=== PATIENT | female | born 1980 | race Hispanic/Latino ===

== ENCOUNTER 2017-05-15 17:32 | Inpatient (IN) | payer BC, OTHER ==
[2017-05-15] MEDS ORDERED: EPINEPHrine 1 MG/ML AMP ONE ×5 (17:42→21:39)
[2017-05-15] MEDS ORDERED: diphenhydrAMINE 50 MG/ML VIAL ONE (17:42)
[2017-05-15] MEDS ORDERED: Famotidine/PF 20 mg/2ml Vial ONE (17:46)
[2017-05-15] MEDS ORDERED: methylPREDNISolone Sod Succ/PF 125 MG/2 ML VIAL ONE (17:46)
[2017-05-15] MEDS ORDERED: Water For Inject, Bacteriostat 30 ML ONE (17:46)
[2017-05-15] MEDS ORDERED: Magnesium Sulfate 2 GM/NS 0.9% 50 ML BAG ONE (17:51)
[2017-05-15] MEDS ORDERED: EPINEPHrine 1 MG/10 ML Abboject SYRINGE ONE (19:45)
--- NOTE | 2017-05-15 20:14 | RAD ---
PORTABLE CHEST ONE VIEW: Date: 05-15-17 Time: 7:05 p.m. History: Allergic reaction. Respiratory distress. FINDINGS: Comparison made with exam of 05-08-16. The heart size is normal. No lobar consolidation, pneumothorax, kelli pleural edema or large effusion s are seen. IMPRESSION: No acute process. POS: [facility]
[2017-05-15] MEDS ORDERED: Ondansetron HCl/PF 4 MG/2 ML Vial ONE (20:31)
[2017-05-15] MEDS ORDERED: Ketorolac Tromethamine 30 MG/ML VIAL ONE (21:34)
[2017-05-15] MEDS ORDERED: Lidocaine 1% PF 5 ML VIAL ONE (21:44)
[2017-05-15] MEDS ORDERED: Benzocaine 20% Spray 60 ML CAN ONE (21:44)
[2017-05-15] MEDS ORDERED: Midazolam HCl 5 mg/ml Vial ONE ×3 (22:01→23:57)
[2017-05-15] MEDS ORDERED: Fentanyl 100 MCG/2 ML VIAL ONE ×2 (22:01→23:19)
[2017-05-15 23:09] LABS: #Lymphocytes 0.7 thou/uL (1.20-3.40); #Neutrophils 8.5 thou/uL (1.40-6.50); %Basophils 0.3 % (0.0-1.0); %Lymphocytes 7.7 % (21.0-51.0); %Monocytes 0.4 % (0.0-10.0); %Neutrophils 91.6 % (42.0-75.0); Hemoglobin 10.8 g/dL (12.0-16.0); Mean Corpuscular HGB CONC 31.3 g/dL (32.0-36.0); Mean Corpuscular Hemoglobin 27.6 pg (27.0-31.0); Mean Corpuscular Volume 87.9 fl (81.0-99.0); Mean Platelet Volume 5.2 fL (7.4-10.4); Platelet Count 386 thou/uL (130-400); RBC Distribution Width 14.4 % (11.5-14.5); Red Blood Cell (RBC) Count 3.92 mill/uL (4.20-5.40); White Blood Cell (WBC) Count 9.3 thou/uL (4.8-10.8)
[2017-05-15 23:12] LABS: BHCG - Serum Negative (NEGATIVE); Pregs Control Background? CLEAR/WHITE (CLR/WHITE); Pregs Control Bar Appear? YES (CONTROL BAR)
--- NOTE | 2017-05-15 23:14 | RAD ---
PORTABLE CHEST: Date: 05-15-17 Time: 10:55 p.m. History: Respiratory failure. Comparison: 7:05 p.m., same day. FINDINGS: There has been interval placement of an endotracheal tube with tip at the level of the clavicular hea ds. The nasogastric tube is coiled in the distal esophagus with the tip projected superiorly in the d istal esophagus. Report was called to ER physician, Dr. Rodolfo Stewart, at 10:32 p.m. POS: [facility]
[2017-05-15 23:17] LABS: ALT (SGPT) 14 U/L (8-55); AST (SGOT) 12 U/L (5-34); Albumin 3.8 g/dL (3.5-5.0); Alkaline Phosphatase 46 U/L (40-150); Anion Gap 18 mmol/L (10-20); BUN (Urea Nitrogen) 7 mg/dL (7.0-18.7); Bilirubin, Total 0.2 mg/dL (0.2-1.2); Calc. Creatinine Clearance 0 mL/min (70-130); Carbon Dioxide 14 mmol/L (22-29); Chloride 110 mmol/L (98-107); Estimated GFR-MDRD 66; Globulin 3.5 g/dL (2.4-3.5); Glucose 341 mg/dL (70-105); Protein, Total 7.3 g/dL (6.0-8.3); Sodium 139 mmol/L (136-145)
[2017-05-15] MEDS ORDERED: Sodium Chloride 0.9% 100 ML ONE ×2 (23:19→23:58)
--- NOTE | 2017-05-15 23:20 | RAD ---
PORTABLE CHEST ONE VIEW: Date: 05-15-17 Time: 10:35 p.m. History: Respiratory failure, NG tube adjacent. FINDINGS/IMPRESSION: Comparison made with earlier from same day. Endotracheal tube remains in place. There has been re-positioning of the nasogastric tube with tip in the left upper quadrant in the projection of the stomach. POS: [facility]
[2017-05-16] MEDS ORDERED: Propofol 1,000 MG/100 ML VIAL IV ONE (00:37)
[2017-05-16] MEDS ORDERED: Lorazepam 2 MG/ML VIAL ONE (00:58)
[2017-05-16] MEDS ORDERED: Fentanyl 100 MCG/2 ML VIAL ONE ×3 (01:24→02:00)
[2017-05-16] MEDS ORDERED: Acetaminophen 325 MG TAB PO PRN (02:43)
[2017-05-16] MEDS ORDERED: Ondansetron HCl/PF 4 MG/2 ML Vial IVP PRN (02:43)
[2017-05-16] MEDS ORDERED: EPINEPHrine 1 MG, Admixture Fee 1 EACH in Dextrose 5% in Water 250 ML IVPB SCH (02:45)
[2017-05-16] MEDS ORDERED: fentaNYL Citrate/PF 2,000 MCG in Sodium Chloride 0.9% 60 ML IV SCH (02:47)
[2017-05-16] MEDS ORDERED: Fentanyl BOLUS 250 ML IVPB PRN (02:47)
[2017-05-16] MEDS ORDERED: Lorazepam 2 MG/ML VIAL SLOW IVP PRN (02:47)
[2017-05-16] MEDS ORDERED: Morphine 2 MG/ML SYRINGE SLOW IVP PRN (02:47)
[2017-05-16] MEDS ORDERED: DISCONTINUE PREVIOUS NARCOTIC PAIN MEDICATIONS AND BENZODIAZEPINES FS SCH (02:47)
[2017-05-16] MEDS ORDERED: Propofol 1,000 MG/100 ML VIAL IV PRN (02:47)
[2017-05-16] MEDS ORDERED: Sodium Chloride 0.9% 1,000 ML IV SCH (03:00)
[2017-05-16] MEDS ORDERED: Ventilator Sedation Protocol 1 EACH FS ONE (03:07)
[2017-05-16] MEDS ORDERED: Dextrose 50% Abboject 50 ML SYRINGE SLOW IVP PRN (03:11)
[2017-05-16] MEDS ORDERED: Insulin Regular 300 UNITS/3 ML VIAL SC PRN (03:11)
[2017-05-16] MEDS ORDERED: Dextrose 5% in Water 1,000 ML IV PRN (03:11)
[2017-05-16 03:26] LABS: Actual Bicarbonate (HCO3a) 16.4 mEq/L (22-26); Base Excess (BEa) -7.3 mEq/L (0 (+/-) 2.5); CO2 Tension 27.4 mmHg (35.0-45.0); Calcium, Ionized 1.1 mmol/L (1.12-1.30); Hematocrit-ABG 32.5 % (36.0-47.0); Hemoglobin (Hb) 10.1 g/dL (12.0-16.0)
[2017-05-16 03:28] LABS: O2 Tension (PaO2) 535.7 mmHg (80.0-100.0)
[2017-05-16 03:29] LABS: Puncture Site LRA
[2017-05-16] MEDS ORDERED: Potassium Chloride 40 MEQ in Sodium Chloride 0.9% 250 ML 250 ML IVPB SCH (04:00)
[2017-05-16] MEDS: Sodium Chloride 0.9% 1,000 ML IV SCH ×4 (05:05→20:46)
--- NOTE | 2017-05-16 05:11 | HP ---
DATE OF ADMISSION: 05/15/2017 PRIMARY CARE PHYSICIAN: Dr. Conrad Figueredo. CHIEF COMPLAINT: Difficulty breathing. HISTORY OF PRESENT ILLNESS: The patient presented to [facility]gent [facility] ER after trying a new Jamba juice blended with, I believe, dragon fruit reportedly by secondhand reports. She had hives breakout across her neck and chest with difficulty breathing. She was transferred to the [facility] Emergency Department, evaluated and initiated on anaphylaxis protocol. She was unable to maintain her airway despite aggressive treatment and was intubated to protect her airway. Transition to ICU under propofol drip and has remained stable since intubation. The patient is sedated and intubated at the time of exam unable to get ancillary history, unable to get review of systems. Review of past medical, social, and surgical history include closed head injury 2015 with postconcussive syndrome and Arnold-Chiari malformation in 05/2016, lumbar spondylosis 04/2017, history of migraines, insomnia. HOME MEDICATIONS: Include Zofran q.6 hours p.r.n., MS Contin 15 mg q.8 hours extended release, Lidoderm patch 5% q.12 hours, Ortho-Cyclen 0.25/35 mg/mcg once daily, diazepam 10 mg 1 tab prior to injection therapy with Dr. Fady Mtz, naloxegol oxalate 25 mg 1 tab p.o. q. day, gabapentin 300 mg 3 tabs q.8 hours, duloxetine 30 mg 1 tab p.o. q. day, Fioricet 1 tab p.r.n. headache, methocarbamol 750 mg 1 tab p.o. q.4 hours p.r.n. muscle spasm. PAST SURGICAL HISTORY: Includes , cataract, cholecystectomy, partial gastrectomy, tonsils, and adenoids, surgery for Chiari malformation with a subdural hematoma in 2014, April; laminectomy at C1 in April. SOCIAL HISTORY: Patient drinks alcohol socially. Currently , has 3 children. Nonsmoker. FAMILY HISTORY: Includes mother with epilepsy. PHYSICAL EXAMINATION: VITAL SIGNS: On arrival to the floor, temperature of 97.8, pulse of 64, respiratory rate of 12, oxygen saturation 100% on ventilator support, blood pressure 116/51. GENERAL: The patient is intubated and sedated, nonresponsive. Head is normocephalic, atraumatic. I did not turn the patient to review a surgical scar. ET tube in place and OG tube in place. Pupils are pinpoint, but responsive to light equally. No extension of rash from previous description. In the emergency department appears to be largely resolved at this point. HEART: Regular rate and rhythm. No murmurs auscultated. LUNGS: With coarse breath sounds bilaterally, no rhonchi or rales. ABDOMEN: Soft, nondistended, positive bowel sounds throughout. EXTREMITIES: Lower extremities without cyanosis or edema. NEUROLOGIC: Patient not following commands and sedated as above. However, is moving all 4 extremities on transfer from EMS, requiring both propofol, which she settled down for. LABORATORY DATA: Reviewed. White blood cell count 9.3, hemoglobin of 10.8, platelet count of 386. Sodium of 139, potassium of 3.0, chloride of 110, CO2 of 14, creatinine of 0.96, glucose of 341, AST 12, ALT 14, albumin of 3.8. Serum is reviewed as negative. Initial chest x-ray without acute cardiopulmonary events post ET tube placement. No pneumothorax. OG tube in place in stomach appropriately. ASSESSMENT AND PLAN: Acute respiratory failure secondary to anaphylaxis reaction likely secondary to exotic smoothie patient had yesterday evening. Pulmonary Critical Care was consulted for ventilator management and extubation. We will continue patient on sedation protocols. Continue steroids, likely transition to antihistamines once the patient is extubated again. IV fluids to help flush patient's system at this point time. Patient has p.r.n. for both benzodiazepine and opioids, given patient's outpatient usage of narcotics likely that will remain difficult sedation of patient. We will increase as needed to maintain adequate control patient's airway. Follow up on ABG and adjust as needed, patient's ventilation settings. Hypokalemia-replacing with IV KCL and recheck electrolytes in several hours. Hyperglycemia-likely stress induced,but while on high dose steroids will cover with SSI and accuchecks q4 hours. We will have Dr. Conrad Figueredo in the morning. BARBARA
[2017-05-16] MEDS: methylPREDNISolone Sod Succ/PF 125 MG/2 ML VIAL IVP SCH ×3 (06:16→21:36)
[2017-05-16] MEDS ORDERED: Sterile Water 10 ML ONE (06:17)
[2017-05-16] MEDS ORDERED: diphenhydrAMINE 50 MG/ML VIAL IVP PRN (07:22)
--- NOTE | 2017-05-16 08:10 | CON ---
DATE OF CONSULTATION: 05/16/2017 Thirty minutes critical care time. REASON FOR CONSULTATION: Angioedema versus anaphylaxis. HISTORY OF PRESENT ILLNESS: A 36-year-old female, who presented to the [facility] Emer[facility] Room yesterday afternoon with complaints of itching in the throat and a rash around the neck that occurred after drinking dragon fruit blend of Jamba Juice. The emergency room doctor treated her wit h a couple doses of epinephrine and symptoms kept recurring, subsequently intubated her for airway pr otection. This morning, she is awake, indicated to us that her throat is no longer itching and she h ad a positive air leak when her cuff was deflated. PAST MEDICAL HISTORY: 1. Chronic pain. 2. Postconcussive syndrome. 3. Arnold-Chiari malformation. 4. Lumbar spondylosis. 5. Migraine headaches. 6. Insomnia. PAST SURGICAL HISTORY: 1. . 2. Cataract surgery. 3. Cholecystectomy. 4. Partial gastrectomy. 5. Tonsillectomy and adenoidectomy. 6. Surgery for Chiari for malformation. 7. Subdural hematoma treatment. SOCIAL HISTORY: Drinks socially, nonsmoker. , has 3 children. FAMILY MEDICAL HISTORY: Remarkable for epilepsy. MEDICATIONS: Reviewed including Zofran, MS Contin, Lidoderm patch, Ortho-Cyclen, diazepam, gabapenti n, duloxetine, Fioricet, methocarbamol. REVIEW OF SYSTEMS: Cannot be obtained as the patient is on mechanical ventilation when initially int erviewed. ALLERGIES: No known allergies prior to this. PHYSICAL EXAMINATION: VITAL SIGNS: Temperature 98.4, pulse 63, blood pressure 111/50. GENERAL: She is well-developed, well-nourished, in no acute distress, intubated with endotracheal tu be in place. HEENT EXAM: Pupils react, sclerae anicteric. Oropharynx, she had no tongue swelling. She had posit aldo air leak when the cuff was deflated. NECK: No JVD. LUNGS: Clear to auscultation. CARDIAC: S1, S2 regular, without murmur. ABDOMEN: Soft, nontender. EXTREMITIES: No clubbing, cyanosis, edema. NEUROLOGIC EXAM: Moves all 4 extremities without difficulty. LABORATORY DATA: White blood cell count 9.3, hematocrit 34, platelet count 286. PH 7.4, pCO2 of 27, pO2 of 535 on SIMV rate 12, tidal volume 500, PEEP 5, pressure support 10, FiO2 100%. Sodium 139, p otassium 3, chloride 110, CO2 of 14, BUN 7, creatinine 0.9, glucose 341. Chest x-ray showed no mass, effusion, or infiltrate. ASSESSMENT: 1. Angioedema versus anaphylaxis - now resolved. 2. Acute respiratory failure, requiring mechanical ventilation. PLAN: She was extubated successfully. She will be watched in the ICU for several hours, continue on Solu-Medrol. Add IV Pepcid and use Benadryl as needed.
--- NOTE | 2017-05-16 08:22 | PRG ---
DATE OF SERVICE: 05/23/2017 TIME: 0745 SUBJECTIVE: The patient has just been extubated by Dr. Dickinson. She is having difficulty speaking d ue to throat pain from the endotracheal tube. However, she is awake and alert, somewhat sedated. Oswaldo cantu only recalls eating or drinking something at [employer] and immediately afterwards having difficult y with her throat trying to catch her breath. She does not recall any events since then. I informed her that she was at [facility] in the ICU. She was immediately concerned about the whereab outs of her children. OBJECTIVE: VITAL SIGNS: Temperature, patient is afebrile, blood pressure 111/50, pulse 53, respirations 14, pul se ox 100%. HEART: Regular rate and rhythm. LUNGS: Clear. ABDOMEN: Soft. EXTREMITIES: No edema. LABORATORY: BMP pending this morning, blood sugar 148. ASSESSMENT: 1. Anaphylaxis to possibly due to java juice. 2. Acute respiratory failure. 3. History of closed head injury in 2016 with postconcussive syndrome. 4. Arnold Chiari malformation. 5. Lumbar spondylosis. 6. History of migraines. 7. Insomnia. 8. Chronic pain. PLAN: 1. The patient is status post extubation. We will continue to monitor this morning in the ICU. 2. At some point we will have to resume her pain meds. She is followed by Dr. Mtz for chron ic headaches and pain. She has been on MS Contin 15 q.8h., Lidoderm patch, Valium, gabapentin, Cymba lta and muscle relaxants. We will continue to follow today.
[2017-05-16] MEDS ORDERED: Famotidine/PF 20 mg/2ml Vial SLOW IVP SCH (09:00)
[2017-05-16 09:30] LABS: Anion Gap 11 mmol/L (10-20); BUN (Urea Nitrogen) 5 mg/dL (7.0-18.7); Calc. Creatinine Clearance 135 mL/min (70-130); Calcium 8.3 mg/dL (7.8-10.44); Carbon Dioxide 16 mmol/L (22-29); Chloride 114 mmol/L (98-107); Estimated GFR-MDRD Greater than 90; Glucose 131 mg/dL (70-105); Potassium 4.4 mmol/L (3.5-5.1); Sodium 137 mmol/L (136-145)
[2017-05-16] MEDS ORDERED: methylPREDNISolone Sod Succ/PF 125 MG/2 ML VIAL ONE (15:57)
[2017-05-16] MEDS ORDERED: Mag-Al 1200 mg/1200 mg/30 ML UDCUP PO PRN (19:46)
[2017-05-16] MEDS ORDERED: Ibuprofen 800 MG TAB PO PRN (19:46)
[2017-05-16] MEDS ORDERED: Promethazine 25 MG TAB PO PRN (19:48)
[2017-05-16] MEDS: Morphine ER 15 MG TAB PO SCH (20:46)
[2017-05-17] MEDS: Morphine ER 15 MG TAB PO SCH (05:20)
[2017-05-17] MEDS: Sodium Chloride 0.9% 1,000 ML IV SCH (05:21)
[2017-05-17] MEDS ORDERED: methylPREDNISolone Sod Succ/PF 125 MG/2 ML VIAL IVP SCH (06:00)
[2017-05-17 07:36] VITALS: BP 120/74; TEMP 99
--- NOTE | 2017-05-17 08:32 | DIS ---
DATE OF ADMISSION: 05/16/2017 DATE OF DISCHARGE: 05/17/2017 DISCHARGE DIAGNOSES: 1. Anaphylactic reaction to java juice. 2. Acute respiratory failure. 3. History of closed head injury in 2016 with postconcussive syndrome. 4. Migraine. 5. Arnold Chiari malformation 6. Lumbar spondylosis 7. Insomnia. 8. Chronic pain. DISCHARGE MEDICATIONS: 1. Z-ARIELLA. 2. EpiPen. 3. Medrol Dosepak. 4. Phenergan 25 p.r.n. 5. Ortho Cyclen 28. 6. MS Contin 15 q.8h. 7. Skelaxin 750 q.4h. p.r.n. 8. Lidocaine 5% patch mg daily. 9. Ibuprofen 800 p.r.n. 10. Fioricet q.6h. p.r.n. FOLLOWUP: Follow up [address] Conrad Figueredo. BRIEF HISTORY: This is a 36-year-old Latin-[place] female who presented to the [facility] after drinking a java juice blend. The patient states that the only thing new she had was some type of dragon fruit and some other kind of seed. Immediately after drinking this she began to break out across her chest and began having difficulty breathing. This became progressively wors e and she presented to the Urgent Care and was transferred to [facility] ER where she was immediately intubated. She was started on steroids and Benadryl. HOSPITAL COURSE: She was admitted to the ICU. She was observed overnight. She was extubated in the morning by Dr. Dickinson. She was observed overnight and she has done well. She simply complains of a slight cough and scratchy throat. This is possibly due to the intubation, but she does have somewh at of a cough. She will be given a Z-ARIELLA as well as a Medrol Dosepak. I explained to her the use of an EpiPen. She is well aware to avoid drinking at [employer]. White count 9.3, H&H 10 and 34. Electrolytes normal. Creatinine 0.69, BUN 5, blood sugar 131. Ches t x-ray no acute disease.
[2017-05-17] MEDS ORDERED: FLU VACC QS2017-18 36 mo. & older 0.5 ML SYRINGE IM ONE (09:00)
[2017-05-17] MEDS ORDERED: Famotidine 20 MG TAB PO SCH (09:00)
[2017-05-17] MEDS ORDERED: Loratadine 10 MG TAB PO SCH (09:00)
--- NOTE | 2017-06-01 18:41 | EKG ---
Test Reason : Blood Pressure : / mmHG Vent. Rate : 097 BPM Atrial Rate : 097 BPM P-R Int : 154 ms QRS Dur : 092 ms QT Int : 348 ms P-R-T Axes : 077 070 050 degrees QTc Int : 441 ms Normal sinus rhythm Normal ECG Confirmed by JUSTUS LOPEZ MD ([id number]), research editor DAXA BRADY ([id number]) on 06/01/2017 6:40:21 PM Referred By: Confirmed By:JUSTUS LOPEZ MD
--- NOTE | 2017-06-13 18:34 | EKG ---
Test Reason : ROUTINE Blood Pressure : / mmHG Vent. Rate : 060 BPM Atrial Rate : 060 BPM P-R Int : 158 ms QRS Dur : 086 ms QT Int : 412 ms P-R-T Axes : 073 072 063 degrees QTc Int : 412 ms Normal sinus rhythm Normal ECG When compared with ECG of 20-JUL-2013 00:05, No significant change was found Confirmed by DR. Carmen LOPEZ ([id number]) on 06/13/2017 6:33:32 PM Referred By: TERESSA Confirmed By:DR. Carmen LOPEZ
== END 2017-05-17 09:55 | disposition home or self-care (01) | DRG 915 ==
LOC: SCSER 17:32 → CCU 05-16 02:31 → T4-A 05-16 18:31
PROVIDERS: ADMIT Family Medicine; ATTEND Family Medicine
PROC: 0BH17EZ Insertion of Endotracheal Airway into Trachea, Via Natural or Artificial Opening (ICD-10-PCS; principal; 2017-05-16)
PROC: 5A1935Z Respiratory Ventilation, Less than 24 Consecutive Hours (ICD-10-PCS; 2017-05-16)
DX: T78.09XA Anaphylactic reaction due to other food products, initial encounter (principal); J96.00 Acute respiratory failure, unspecified whether with hypoxia or hypercapnia; G93.5 Compression of brain; E87.6 Hypokalemia; R73.9 Hyperglycemia, unspecified; G47.00 Insomnia, unspecified; M47.896 Other spondylosis, lumbar region; G43.909 Migraine, unspecified, not intractable, without status migrainosus; Z90.3 Acquired absence of stomach [part of]
CPT/HCPCS: 31500; 36415; 36416; 51702; 71045; 80048; 80053; 82805; 83735; 84703; 85025; 93005; 93010; 94002; 94760; 96361; 96365; 96366; 96367; 96372; 96375; 96376; 99292; A4216; J0171; J1200; J1885; J2001; J2060; J2250; J2405; J2704; J2920; J2930; J3010; J3475; J3480; J7050; J7620; S0028

== ENCOUNTER 2017-05-23 14:22 | Emergency (ER) | payer BC ==
[2017-05-23] MEDS ORDERED: Morphine 4 MG/ML Carpuject ONE ×2 (14:37→15:21)
[2017-05-23] MEDS ORDERED: Ondansetron HCl/PF 4 MG/2 ML Vial ONE (14:37)
[2017-05-23 14:51] LABS: #Basophils 0.2 thou/uL (0.0-0.2); #Eosinphils 0.1 thou/uL (0.0-0.7); #Lymphocytes 4.5 thou/uL (1.20-3.40); #Monocytes 0.7 thou/uL (0.11-0.59); #Neutrophils 6.3 thou/uL (1.40-6.50); %Basophils 1.9 % (0.0-1.0); %Eosinophils 0.9 % (0.0-10.0); %Neutrophils 53.3 % (42.0-75.0); Hemoglobin 13.3 g/dL (12.0-16.0); Mean Corpuscular HGB CONC 32.7 g/dL (32.0-36.0); Mean Corpuscular Volume 85.5 fl (81.0-99.0); Mean Platelet Volume 5.4 fL (7.4-10.4); Platelet Count 476 thou/uL (130-400); RBC Distribution Width 13.7 % (11.5-14.5); Red Blood Cell (RBC) Count 4.75 mill/uL (4.20-5.40); White Blood Cell (WBC) Count 11.8 thou/uL (4.8-10.8)
[2017-05-23 14:57] LABS: BHCG - Serum Negative (NEGATIVE); Pregs Control Background? CLEAR/WHITE (CLR/WHITE); Pregs Control Bar Appear? YES (CONTROL BAR)
[2017-05-23 15:19] LABS: Carbon Dioxide 23 mmol/L (22-29); Chloride 102 mmol/L (98-107); Potassium 3.8 mmol/L (3.5-5.1); Sodium 139 mmol/L (136-145)
[2017-05-23 15:20] LABS: Albumin 4.2 g/dL (3.5-5.0); Anion Gap 18 mmol/L (10-20); BUN (Urea Nitrogen) 13 mg/dL (7.0-18.7); Bilirubin, Total 0.5 mg/dL (0.2-1.2); Calc. Creatinine Clearance 0 mL/min (70-130); Calcium 9.5 mg/dL (7.8-10.44); Estimated GFR-MDRD 82; Globulin 3.8 g/dL (2.4-3.5); Glucose 90 mg/dL (70-105)
[2017-05-23 15:21] LABS: ALT (SGPT) 22 U/L (8-55); AST (SGOT) 15 U/L (5-34); Alkaline Phosphatase 46 U/L (40-150); Lipase 25 U/L (8-78)
--- NOTE | 2017-05-23 15:35 | CT ---
CT ABDOMEN AND PELVIS WITH CONTRAST: History: Abdominal pain, constipation. Comparison: 09-17-16 FINDINGS: The lung bases are clear. Mild atelectatic change. No pericardial effusion. No dilated air filled loops of large or small bowel. There are numerous mildly distended loops of flu id filled small bowel. Appendix is felt to be visualized and appears normal. No free intraperitoneal gas or fluid. Aortoiliac contour is normal. No adenopathy. Spleen is unremarkable. The pancreas is unremarkable. Likely contrast formation in the pelvic calices and not calculi. 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 Liver, gallbladder, spleen, and adrenal glands are unremarkable. IMPRESSION: 1. No acute inflammatory process in the abdomen or pelvis. 2. Normal appendix. 3. Lumbosacral transitional vertebrae. POS: [facility]
[2017-05-23] MEDS ORDERED: Mineral Oil ENEMA ONE (15:39)
== END 2017-05-23 16:09 | disposition home or self-care (01) ==
LOC: SCSER 14:22
DX: K59.00 Constipation, unspecified (principal)
CPT/HCPCS: 74177; 80053; 83690; 84703; 85025; 96374; 96375; 96376; J2270; J2405

== ENCOUNTER 2017-07-23 09:51 | Outpatient (CLI) | payer BC | END 2017-07-23 09:52 | disposition home or self-care (01) | LOC: BICMAMMO 09:51 | PROVIDERS: ATTEND Family Medicine | DX: Z12.31 Encounter for screening mammogram for malignant neoplasm of breast (principal); Z80.3 Family history of malignant neoplasm of breast | CPT/HCPCS: 77063; 77067 ==

== ENCOUNTER 2017-07-29 14:51 | Outpatient (CLI) | payer BC | END 2017-07-29 14:52 | disposition home or self-care (01) | LOC: BICMAMMO 14:51 | PROVIDERS: ATTEND Family Medicine | DX: R92.2 Inconclusive mammogram (principal) | CPT/HCPCS: G0279 ==

== ENCOUNTER 2017-12-06 13:08 | Emergency (ER) | payer BC ==
[2017-12-06] MEDS ORDERED: Metoclopramide HCl 10 MG/2 ML VIAL ONE (13:58)
--- NOTE | 2017-12-06 14:00 | RAD ---
PA AND LATERAL VIEWS OF CHEST: Date: 12/06/17 HISTORY: Cough. FINDINGS: The heart size is normal. The lungs are expanded without focal areas of consolidation, pneumothorax, or pleural effusions. No acute osseous abnormalities are seen. IMPRESSION: No radiographic evidence of acute cardiopulmonary process. POS: [facility]
[2017-12-06 14:04] LABS: Eosinophils 1 % (0-10); Hemoglobin 14.7 g/dL (12.0-16.0); Lymphocytes 33 % (21-51); MDiff Complete? YES; Mean Corpuscular HGB CONC 34.7 g/dL (32.0-36.0); Mean Corpuscular Hemoglobin 28.1 pg (27.0-31.0); Mean Corpuscular Volume 80.8 fL (78.0-98.0); Mean Platelet Volume 5.6 fL (7.4-10.4); Monocytes 6 % (0-10); Neutrophil 56 % (42-75); PLT Morphology Comment Appears Increased; Platelet Count 437 thou/uL (130-400); RBC Distribution Width 12.8 % (11.5-14.5); Reactive Lymphocytes 3 % (0-10); Red Blood Cell (RBC) Count 5.23 mill/uL (4.20-5.40); White Blood Cell (WBC) Count 8.3 thou/uL (4.8-10.8)
[2017-12-06 14:07] LABS: ALT (SGPT) 18 U/L (8-55); AST (SGOT) 19 U/L (5-34); Albumin 4.9 g/dL (3.5-5.0); Alkaline Phosphatase 55 U/L (40-150); Anion Gap 18 mmol/L (10-20); BUN (Urea Nitrogen) 11 mg/dL (7.0-18.7); Bilirubin, Total 0.9 mg/dL (0.2-1.2); Calc. Creatinine Clearance 0 mL/min (70-130); Calcium 10.3 mg/dL (7.8-10.44); Carbon Dioxide 18 mmol/L (22-29); Chloride 107 mmol/L (98-107); Estimated GFR-MDRD 74; Globulin 4.1 g/dL (2.4-3.5); Glucose 101 mg/dL (70-105); Lipase 29 U/L (8-78); Potassium 3.9 mmol/L (3.5-5.1); Sodium 139 mmol/L (136-145)
== END 2017-12-06 14:40 | disposition home or self-care (01) ==
LOC: SCSER 13:08
DX: J06.9 Acute upper respiratory infection, unspecified (principal); R11.2 Nausea with vomiting, unspecified
CPT/HCPCS: 36415; 71046; 80053; 83690; 85025; 94760; 96365; J2765; J7620

== ENCOUNTER 2018-08-13 10:35 | Outpatient (CLI) | payer BC ==
--- NOTE | 2018-08-13 11:11 | ULT ---
RIGHT UPPER QUADRANT ULTRASOUND GALLBLADDER ULTRASOUND: History Right upper quadrant pain. COMPARISON: 06/14/2012. TECHNIQUE: Utilizing a multihertz transducer, sonographic imaging of the right upper quadrant is performed in th e longitudinal and transverse plane. FINDINGS: The head of the pancreas has a normal echotexture. The remainder of the pancreas is obscured by alhaji l gas. Hepatic parenchyma has a normal echotexture. No hepatic masses or intrahepatic biliary dilatation. Contour of the hepatic margin is maintained. Patent IVC. No sonographic evidence of cholelithiasis, gallbladder wall thickening, or pericholecystic fluid. Ne gative Trimble's sign. Common bile duct diameter is 0.4 cm,. Main portal vein is patent. Appropriate direction of flow. The right kidney has a normal cortical echotexture. No hydronephrosis. The right kidney measures 9. 7 x 4.2 x 6.5 cm. IMPRESSION: Unremarkable right upper quadrant ultrasound. POS: [facility]
== END 2018-08-13 10:36 | disposition home or self-care (01) ==
LOC: BICULT 10:35
PROVIDERS: ATTEND Physician Assistant Medical
DX: K31.84 Gastroparesis (principal); K59.03 Drug induced constipation; R10.11 Right upper quadrant pain
CPT/HCPCS: 76705

== ENCOUNTER 2018-11-24 14:20 | Emergency (ER) | payer BC ==
[~2018-11-24 14:20] MED LIST: ISOVUE-370 76%-LOCM 1 ML ONE
[2018-11-24 14:49] LABS: #Basophils 0.1 thou/uL (0.0-0.2); #Eosinphils 0.1 thou/uL (0.0-0.7); #Lymphocytes 3.3 thou/uL (1.20-3.40); #Monocytes 0.5 thou/uL (0.11-0.59); #Neutrophils 3.5 thou/uL (1.40-6.50); %Basophils 0.8 % (0.0-1.0); %Eosinophils 1.6 % (0.0-10.0); %Monocytes 6.7 % (0.0-10.0); %Neutrophils 46.9 % (42.0-75.0); Hemoglobin 13.4 g/dL (12.0-16.0); Mean Corpuscular HGB CONC 32.6 g/dL (32.0-36.0); Mean Corpuscular Hemoglobin 30.3 pg (27.0-31.0); Mean Platelet Volume 5.9 fL (7.4-10.4); Platelet Count 465 thou/uL (130-400); Red Blood Cell (RBC) Count 4.41 mill/uL (4.20-5.40); White Blood Cell (WBC) Count 7.5 thou/uL (4.8-10.8)
[2018-11-24 14:52] LABS: Bilirubin Negative (Negative); Blood, Urine Small (Negative); Glucose, Urine (Dipstick) Negative (Negative); Leukocyte Negative (Negative); Nitrite Negative (Negative); Protein, Urine (Dipstick) Negative (Neg-Trace); Urobilinogen 0.2 mg/dL (Less than 2)
[2018-11-24 14:57] LABS: Clarity Clear (Clear)
[2018-11-24 15:03] LABS: Bacteria/HPF None Seen HPF (None Seen); RBC/HPF 0-3 HPF (0-3); Squamous Epithelial 0-3 HPF (0-3); WBC/HPF None Seen HPF (0-3)
[2018-11-24 15:13] LABS: ALT (SGPT) 18 U/L (8-55); AST (SGOT) 17 U/L (5-34); Albumin 4.4 g/dL (3.5-5.0); Alkaline Phosphatase 56 U/L (40-150); Anion Gap 13 mmol/L (10-20); BUN (Urea Nitrogen) 9 mg/dL (7.0-18.7); Bilirubin, Total 0.2 mg/dL (0.2-1.2); Calc. Creatinine Clearance 0 mL/min (70-130); Calcium 9.7 mg/dL (7.8-10.44); Carbon Dioxide 20 mmol/L (22-29); Chloride 106 mmol/L (98-107); Estimated GFR-MDRD 84; Globulin 3.6 g/dL (2.4-3.5); Glucose 106 mg/dL (70-105); Lipase 23 U/L (8-78); Potassium 3.9 mmol/L (3.5-5.1); Sodium 135 mmol/L (136-145)
[2018-11-24 15:34] LABS: BHCG - Serum Negative (NEGATIVE); Pregs Control Background? CLEAR/WHITE (CLR/WHITE); Pregs Control Bar Appear? YES (CONTROL BAR)
[2018-11-24] MEDS ORDERED: Morphine 4 MG/ML VIAL ONE (18:12)
[2018-11-24] MEDS ORDERED: Ondansetron PF 4 MG/2 ML Vial ONE (18:12)
--- NOTE | 2018-11-24 18:56 | CT ---
CT ABDOMEN AND PELVIS WITH IV CONTRAST: INDICATIONS: Left lower quadrant abdominal pain. COMPARISON: CT scan from 05/23/2017. FINDINGS: The lung bases are clear. The liver, spleen, and pancreas are unremarkable. The kidneys are unremar kable. The urinary bladder is unremarkable. Small bowel loops appears normal. The appendix appears normal. Stool throughout the colon. No CT e vidence of diverticulitis. Pelvic structures are unremarkable. Small left ovarian cyst, measuring a pproximately 2 cm. No free fluid. Uterus is unremarkable. IMPRESSION: 1. Evidence of small left ovarian cyst. 2. No acute abnormality identified. POS: [facility]
[2018-11-24] MEDS ORDERED: Ketorolac Tromethamine 30 MG/ML VIAL ONE (19:13)
--- NOTE | 2018-11-24 20:00 | ULT ---
PELVIC ULTRASOUND: INDICATIONS: Evaluate left ovarian cyst. Question torsion. TECHNIQUE: Transabdominal and endovaginal ultrasound of the pelvis performed. FINDINGS: The uterus has an unremarkable appearance. There is retroversion. The right ovary shows follicular cysts. The left ovary shows follicular cysts, with the largest measuring 2.5 to 3.0 cm. Color Doppler with spectral analysis demonstrates blood flow to both ovaries. A small amount of free fluid is noted in the cul-de-sac. IMPRESSION: 1. Ovarian follicular cysts are seen, as described. 2. Small amount of free fluid. POS: [facility]
[2018-11-24] MEDS ORDERED: Acetaminophen/Codeine 30-300mg Tablet ONE (20:27)
== END 2018-11-24 20:35 | disposition home or self-care (01) ==
LOC: ERS 14:20
DX: N83.202 Unspecified ovarian cyst, left side (principal); Z79.899 Other long term (current) drug therapy
CPT/HCPCS: 36415; 74177; 76856; 80053; 81003; 81015; 83605; 83690; 84703; 85025; 96361; 96374; 96375; J1885; J2270; J2405; Q9966

== ENCOUNTER 2018-12-23 19:06 | Emergency (ER) | payer BC ==
--- NOTE | 2018-12-23 21:07 | CT ---
Head CT without contrast 12/23/2018: COMPARISON: 07/06/2014 HISTORY: Headache TECHNIQUE: Axial CT imaging at 5 mm intervals from vertex through skull base without contrast FINDINGS: Imaged paranasal sinuses and mastoid air cells are well aerated. No displaced calvarial fra cture. No intracranial hemorrhage, midline shift, mass effect, or ventricular enlargement. No interval change. IMPRESSION: Stable head CT-no acute findings.
[2018-12-23 21:10] LABS: #Basophils 0.1 thou/uL (0.0-0.2); #Eosinphils 0.1 thou/uL (0.0-0.7); #Lymphocytes 3.9 thou/uL (1.20-3.40); #Monocytes 0.5 thou/uL (0.11-0.59); #Neutrophils 3.8 thou/uL (1.40-6.50); %Basophils 1.1 % (0.0-1.0); %Eosinophils 1.1 % (0.0-10.0); %Lymphocytes 46.2 % (21.0-51.0); %Monocytes 6.5 % (0.0-10.0); %Neutrophils 45.2 % (42.0-75.0); Hemoglobin 12.8 g/dL (12.0-16.0); Mean Corpuscular HGB CONC 35.4 g/dL (32.0-36.0); Mean Corpuscular Volume 90.4 fL (78.0-98.0); Platelet Count 423 thou/uL (130-400); RBC Distribution Width 12.2 % (11.5-14.5); White Blood Cell (WBC) Count 8.4 thou/uL (4.8-10.8)
[2018-12-23 21:33] LABS: ALT (SGPT) 20 U/L (8-55); AST (SGOT) 15 U/L (5-34); Albumin 4.2 g/dL (3.5-5.0); Alkaline Phosphatase 53 U/L (40-150); Anion Gap 13 mmol/L (10-20); BUN (Urea Nitrogen) 13 mg/dL (7.0-18.7); Bilirubin, Total 0.3 mg/dL (0.2-1.2); Calc. Creatinine Clearance 0 mL/min (70-130); Calcium 9.1 mg/dL (7.8-10.44); Carbon Dioxide 18 mmol/L (22-29); Chloride 110 mmol/L (98-107); Estimated GFR-MDRD 71; Globulin 3.1 g/dL (2.4-3.5); Glucose 90 mg/dL (70-105); Potassium 3.9 mmol/L (3.5-5.1); Protein, Total 7.3 g/dL (6.0-8.3); Sodium 137 mmol/L (136-145)
[2018-12-23] MEDS ORDERED: diphenhydrAMINE 50 MG/ML VIAL ONE (21:57)
[2018-12-23] MEDS ORDERED: Metoclopramide HCl 10 MG/2 ML VIAL ONE (21:57)
[2018-12-23] MEDS ORDERED: Fentanyl 100 MCG/2 ML VIAL ONE (21:57)
== END 2018-12-23 22:45 | disposition home or self-care (01) ==
LOC: ERS 19:06
DX: R51 Headache (principal)
CPT/HCPCS: 36415; 70450; 80053; 85025; 96365; 96375; J1200; J2765; J3010

== ENCOUNTER 2019-06-30 15:10 | Outpatient (CLI) | payer BC ==
--- NOTE | 2019-06-30 15:40 | CT ---
CT Stone Protocol: 06/30/2019 12:00 AM HISTORY: Right flank pain and gross hematuria COMPARISON: None. TECHNIQUE: Multiple contiguous axial images were obtained and a CT of the abdomen and pelvis without IV contrast . Coronal and sagittal reformats were performed. FINDINGS: This examination is limited for the evaluation of solid organs and vascular structures due to the lac k of intravenous contrast. Lower Chest: within normal limits. Abdomen: Liver: within normal limits. Bile Ducts: Normal caliber. Gallbladder: No calcified gallstones. Normal caliber wall. Pancreas: within normal limits. Spleen: within normal limits. Adrenals: within normal limits. Kidneys: within normal limits. Pelvis: Reproductive Organs: No pelvic masses. Ureters: within normal limits. Bladder: within normal limits. Bowel: Normal caliber. Normal appendix. Mesenteric Lymph Nodes: No enlarged mesenteric lymph nodes. Peritoneum: No ascites or free air, no fluid collection. Vessels: Normal caliber aorta Retroperitoneum: within normal limits. Abdominal Wall: within normal limits. Bones: Unremarkable. IMPRESSION: No evidence of acute intraabdominal or pelvic abnormality.
== END 2019-06-30 15:11 | disposition home or self-care (01) ==
LOC: BICCT 15:10
PROVIDERS: ATTEND Family Medicine
DX: R31.0 Gross hematuria (principal)
CPT/HCPCS: 74176

== ENCOUNTER 2019-07-02 07:29 | Emergency (ER) | payer BC ==
[2019-07-02] MEDS ORDERED: Aspirin Chewable 81 MG TAB ONE (08:07)
[2019-07-02] MEDS ORDERED: Nitroglycerin 0.4 MG TAB 1 EACH ONE (08:07)
[2019-07-02 08:09] LABS: #Basophils 0.1 thou/uL (0.0-0.2); #Eosinphils 0.1 thou/uL (0.0-0.7); #Lymphocytes 3.6 thou/uL (1.20-3.40); #Monocytes 0.5 thou/uL (0.11-0.59); #Neutrophils 3.1 thou/uL (1.40-6.50); %Basophils 1.1 % (0.0-1.0); %Eosinophils 1.4 % (0.0-10.0); %Lymphocytes 49.1 % (21.0-51.0); %Monocytes 6.7 % (0.0-10.0); %Neutrophils 41.7 % (42.0-75.0); Hemoglobin 13.6 g/dL (12.0-16.0); Mean Corpuscular HGB CONC 34.5 g/dL (32.0-36.0); Mean Corpuscular Hemoglobin 31.8 pg (27.0-31.0); Mean Corpuscular Volume 92.3 fL (78.0-98.0); Mean Platelet Volume 6.3 fL (7.4-10.4); Platelet Count 427 thou/uL (130-400); RBC Distribution Width 11.5 % (11.5-14.5); Red Blood Cell (RBC) Count 4.28 mill/uL (4.20-5.40); White Blood Cell (WBC) Count 7.4 thou/uL (4.8-10.8)
[2019-07-02 08:29] LABS: ALT (SGPT) 16 U/L (8-55); AST (SGOT) 18 U/L (5-34); Albumin 4.1 g/dL (3.5-5.0); Alkaline Phosphatase 54 U/L (40-110); Anion Gap 14 mmol/L (10-20); BUN (Urea Nitrogen) 12 mg/dL (7.0-18.7); Bilirubin, Total 0.5 mg/dL (0.2-1.2); Calc. Creatinine Clearance 0 mL/min (70-130); Calcium 9.2 mg/dL (7.8-10.44); Carbon Dioxide 21 mmol/L (22-29); Chloride 107 mmol/L (98-107); Estimated GFR-MDRD 81; Globulin 3.4 g/dL (2.4-3.5); Glucose 93 mg/dL (70-105); Potassium 3.7 mmol/L (3.5-5.1); Protein, Total 7.5 g/dL (6.0-8.3); Sodium 138 mmol/L (136-145)
[2019-07-02 08:32] LABS: BHCG - Serum Negative (NEGATIVE); Pregs Control Background? CLEAR/WHITE (CLR/WHITE); Pregs Control Bar Appear? YES (CONTROL BAR)
--- NOTE | 2019-07-02 08:44 | ULT ---
US Venous Doppler Lt Unilat History: Lower extremity edema and pain Comparison: None. Findings: Real-time grayscale, color, and spectral analysis of the left lower extremity venous system was performed. The common femoral, femoral, proximal portions greater saphenous and deep femoral veins as well as the popliteal and posterior tibial veins were interrogated. Normal flow, augmentation, and compression. Impression: No deep venous thrombosis.
--- NOTE | 2019-07-02 09:27 | CT ---
EXAM: CTA of the chest HISTORY: Chest pain COMPARISON: None TECHNIQUE: Multiple contiguous axial images were obtained a CTA of the chest with contrast per pulmon kin embolism protocol. 3-D oblique MIP reformats and direct coronal reformats were performed. FINDINGS: HEART: Normal in size without focal cardiac abnormality. PULMONARY ARTERIES: Normal in caliber without filling defects to suggest pulmonary emboli. MEDIASTINUM: No hilar or mediastinal lymphadenopathy. LUNGS: No focal infiltrates or masses. PLEURAL SPACE: No pleural effusion or pneumothorax. CHEST WALL SOFT TISSUES: Unremarkable VISUALIZED OSSEOUS STRUCTURES: Unremarkable VISUALIZED SUBDIAPHRAGMATIC STRUCTURES: Unremarkable IMPRESSION: No evidence of pulmonary thromboembolism
[2019-07-02] MEDS ORDERED: Acetaminophen 325 MG TAB ONE (09:31)
[2019-07-02 11:28] LABS: Troponin I Less than 0.010 ng/mL (< 0.028)
[2019-07-02] MEDS ORDERED: Iopamidol-370 76% 500 ML 1 ML ONE (13:31)
== END 2019-07-02 12:00 | disposition home or self-care (01) ==
LOC: ERS 07:29
DX: R07.89 Other chest pain (principal); I95.1 Orthostatic hypotension; Z79.899 Other long term (current) drug therapy
CPT/HCPCS: 36415; 71275; 80053; 83880; 84484; 84703; 85025; 93005; Q9967

== ENCOUNTER 2019-08-21 17:53 | Emergency (ER) | payer BC, OTHER ==
--- NOTE | 2019-08-21 18:55 | RAD ---
CHEST ONE VIEW: 08/21/19 HISTORY: Shortness of breath and cough. COMPARISON: Reference is made to a radiograph from 2018. There is also a CT of the chest 07/02/19 for reference. FINDINGS: Mild atelectasis in the lung bases with slight elevation of the right hemidiaphragm due to atelectati c change and volume loss. No confluent air space consolidation, pneumothorax or effusion. No acute osseous abnormality. Cardiac silhouette and mediastinal contours are similar. IMPRESSION: No acute intrathoracic abnormality. POS: [facility]
[2019-08-21] MEDS ORDERED: Albuterol 200 PUFF (6.7GM INHALER) ONE (18:57)
[2019-08-21] MEDS ORDERED: EPINEPHrine 1 MG/ML AMP ONE ×2 (18:57→19:00)
[2019-08-21 19:04] LABS: ALT (SGPT) 13 U/L (8-55); AST (SGOT) 16 U/L (5-34); Albumin 4.1 g/dL (3.5-5.0); Alkaline Phosphatase 54 U/L (40-110); Anion Gap 14 mmol/L (10-20); BUN (Urea Nitrogen) 13 mg/dL (7.0-18.7); Bilirubin, Total 0.3 mg/dL (0.2-1.2); Calc. Creatinine Clearance 0 mL/min (70-130); Calcium 9.1 mg/dL (7.8-10.44); Carbon Dioxide 20 mmol/L (22-29); Chloride 108 mmol/L (98-107); Estimated GFR-MDRD 82; Globulin 3.3 g/dL (2.4-3.5); Glucose 111 mg/dL (70-105); Hemoglobin 13.8 g/dL (12.0-16.0); Mean Corpuscular HGB CONC 34.3 g/dL (32.0-36.0); Mean Corpuscular Volume 90.4 fL (78.0-98.0); Mean Platelet Volume 6.1 fL (7.4-10.4); Platelet Count 505 thou/uL (130-400); Potassium 3.7 mmol/L (3.5-5.1); Protein, Total 7.4 g/dL (6.0-8.3); RBC Distribution Width 11.7 % (11.5-14.5); Red Blood Cell (RBC) Count 4.46 mill/uL (4.20-5.40); Sodium 138 mmol/L (136-145); White Blood Cell (WBC) Count 6.7 thou/uL (4.8-10.8)
[2019-08-21 19:31] LABS: Band 1 % (5-11); Eosinophils 1 % (0-10); Lymphocytes 44 % (21-51); MDiff Complete? YES; Monocytes 4 % (0-10); Neutrophil 47 % (42-75); Platelet Morphology Comment Appears Increased; RBC Morphology Normal; Reactive Lymphocytes 2 % (0-10)
== END 2019-08-21 21:34 | disposition home health service (06) ==
LOC: ERS 17:53
DX: J06.9 Acute upper respiratory infection, unspecified (principal); R06.03 Acute respiratory distress; R06.2 Wheezing; I95.1 Orthostatic hypotension; Z79.899 Other long term (current) drug therapy
CPT/HCPCS: 36415; 71045; 80053; 85025; 87081; 87430; 87635; 87804; 93005; 96360; 96361; 96372; J0171; U0002

== ENCOUNTER 2019-08-24 11:16 | Observation (INO) | payer BC, OTHER ==
[~2019-08-24 11:16] MED LIST changes: -ISOVUE-370 76%-LOCM 1 ML ONE; +Iopamidol 370 76% 100 ML VIAL ONE
[2019-08-24 12:12] LABS: Hemoglobin 14.6 g/dL (12.0-16.0); Mean Corpuscular HGB CONC 33.7 g/dL (32.0-36.0); Mean Corpuscular Hemoglobin 30.7 pg (27.0-31.0); Platelet Count 492 thou/uL (130-400); RBC Distribution Width 11.8 % (11.5-14.5); Red Blood Cell (RBC) Count 4.77 mill/uL (4.20-5.40); White Blood Cell (WBC) Count 6.3 thou/uL (4.8-10.8)
[2019-08-24] MEDS ORDERED: Magnesium 2 GM/50 ML BAG (IN WATER) ONE (12:12)
[2019-08-24] MEDS ORDERED: EPINEPHrine 1 MG/ML AMP ONE (12:17)
[2019-08-24 12:25] LABS: Anion Gap 15 mmol/L (10-20); BUN (Urea Nitrogen) 12 mg/dL (7.0-18.7); Calc. Creatinine Clearance 0 mL/min (70-130); Calcium 9.6 mg/dL (7.8-10.44); Carbon Dioxide 19 mmol/L (22-29); Chloride 107 mmol/L (98-107); Estimated GFR-MDRD Greater than 90; Glucose 92 mg/dL (70-105); Potassium 3.9 mmol/L (3.5-5.1); Sodium 137 mmol/L (136-145)
[2019-08-24 12:28] LABS: Band 1 % (5-11); Eosinophils 2 % (0-10); Lymphocytes 53 % (21-51); MDiff Complete? YES; Monocytes 6 % (0-10); Neutrophil 35 % (42-75); Platelet Morphology Comment Appears Increased; RBC Morphology Normal; Reactive Lymphocytes 3 % (0-10)
[2019-08-24] MEDS ORDERED: Albuterol 200 PUFF (6.7GM INHALER) ONE (12:28)
--- NOTE | 2019-08-24 12:35 | RAD ---
Chest one view HISTORY: Cough. COMPARISON: 08/21/2019. FINDINGS: Cardiac silhouette is magnified by projection. Pulmonary vasculature is unremarkable. Mediastinum is midline. No lobar consolidation or evidence of pneumothorax. rackman leads overlie the chest. IMPRESSION : No active cardiopulmonary abnormalities are demonstrated.
[2019-08-24] MEDS ORDERED: cefTRIAXone\\ROCEPHIN 2 GM VIAL ONE (12:57)
[2019-08-24] MEDS ORDERED: Azithromycin 500 MG VIAL ONE (12:57)
[2019-08-24] MEDS ORDERED: Terbutaline Sulfate 1 MG/ML VIAL SC SCH (13:30)
[2019-08-24] MEDS ORDERED: Terbutaline Sulfate 1 MG/ML VIAL ONE (13:42)
--- NOTE | 2019-08-24 14:24 | CT ---
CT PULMONARY ANGIOGRAM WITH IV CONTRAST AND 3D POSTPROCESSING: Date: 08/24/2019 HISTORY: Dyspnea, cough, fever, general fatigue, body aches, and diarrhea. COMPARISON: 07/02/2019. FINDINGS: No filling defects are seen in the contrast opacified pulmonary arterial vasculature to suggest pulmo nary embolism. The thoracic aorta is well-opacified without aneurysm or dissection. No pleural or per icardial effusions are seen. No pneumothoraces, focal areas of consolidation, ground-glass opacities, nodules, or masses are seen. There are mild degenerative changes in the spine. A small tracheal dive rticulum at the 7 o'clock position is again seen in the upper mediastinal trachea. IMPRESSION: No CT evidence of pulmonary embolism. POS: [facility]
[2019-08-24 15:25] LABS: Lactic Acid 5.4 mmol/L (0.5-2.2)
[2019-08-24] MEDS ORDERED: Acetaminophen 500 MG TAB ONE (16:06)
[2019-08-24 17:43] VITALS: BMI 27.1
[2019-08-24] MEDS ORDERED: Ondansetron ODT 4 MG TAB PO PRN (18:20)
[2019-08-24] MEDS ORDERED: Ondansetron PF 4 MG/2 ML Vial IVP PRN (18:20)
[2019-08-24] MEDS ORDERED: Zolpidem Tartrate 5 MG TAB PO PRN (18:20)
[2019-08-24] MEDS ORDERED: Loperamide HCl 2 MG CAP PO PRN ×2 (18:20)
[2019-08-24] MEDS ORDERED: Senokot S 8.6-50 MG TAB PO PRN (18:20)
[2019-08-24] MEDS ORDERED: Bisacodyl 5 MG TAB PO PRN (18:20)
[2019-08-24] MEDS: Albuterol 200 PUFF (6.7GM INHALER) INH SCH ×2 (20:49→22:30)
[2019-08-24] MEDS ORDERED: Promethazine 25 MG TAB PO PRN (21:35)
[2019-08-24] MEDS ORDERED: Nortriptyline 10 MG CAP PO SCH (22:00)
[2019-08-24] MEDS: Acetaminophen 325 MG TAB PO PRN (22:05)
[2019-08-24] MEDS: Guaifenesin DM 100-10/5 ML UDCUP PO PRN (22:05)
--- NOTE | 2019-08-24 22:36 | HP ---
CHIEF COMPLAINT: Dry cough with shortness of breath. HISTORY OF PRESENT ILLNESS: This is a 38-year-old female with no significant past medical history, who presented to the ER with complaints of cough and fever, worsening since last week. The patient was tested 3 days ago for COVID-19 and the results are yet to be known. The patient now with increasing shortness of breath, worsening dry cough, fever, generalized fatigue and body aches along with diarrhea. Has a grandson with diarrhea and who was never tested for COVID. PAST MEDICAL HISTORY: Significant for: 1. Syringomyelia. 2. Orthostatic hypotension. 3. Endometriosis. 4. Gastroparesis. 5. Budd-Chiari malformation. SURGICAL HISTORY: Significant for and brain surgery to correct Budd-Chiari malformation in April of 2015. PSYCHIATRIC HISTORY: No previous psych history. SOCIAL HISTORY: The patient drinks socially twice a month and denies any drug use or smoking. ALLERGIES: HYSINGLA ER, LATEX, NEOSPORIN, TOPIRAMATE, AND ZANAFLEX. REVIEW OF SYSTEMS: CONSTITUTIONAL: Please see HPI. HEENT: The patient denies any redness of the eyes, any discharge in the eyes, any rhinorrhea, or sore throat. CARDIOVASCULAR: Denies any chest pain or palpitation. RESPIRATORY: Please see HPI. GI: Please see HPI. Positive for diarrhea. Denies any nausea, vomiting. MUSCULOSKELETAL: Reports body aches. NEUROLOGIC: Denies any focal weakness or paresthesias. PSYCHIATRIC: Negative for psychiatric review of systems. PHYSICAL EXAMINATION: VITAL SIGNS: On arrival, pulse 114, respiratory rate 20, temperature 98.1, O2 saturation 95% on room air. After a few hours, blood pressure remained around 118/67, pulse 105, respiratory rate 16, pain 7, O2 saturation was 100% on room air. CONSTITUTIONAL: Vital Signs as above. Patient is afebrile, but she is tachycardic and tachypneic. HEENT: Normocephalic, atraumatic. Eye examination reveals normal eyelids and conjunctivae. Nasal examination is within normal limits. No bleeding from the nares. Pharynx examination is within normal limits. RESPIRATORY/CHEST: Moderate respiratory distress, but good air entry and no wheezes or rales. CARDIOVASCULAR: Heart rate is within normal limits. Heart sounds are normal. No murmurs. ABDOMEN: Soft, NT/ND. EXTREMITIES: No edema. No swelling. NEUROLOGIC: The patient is awake and alert and moving all extremities. No focal deficits. Cranial nerves are intact. PSYCHIATRIC: Normal affect, awake and alert, and oriented x3. RADIOLOGY DATA: A CT of the chest is within normal limits. LABORATORY DATA: No leukocytosis. White count is within normal limits. ASSESSMENT AND PLAN: Possible COVID-19 infection. Admit the patient under COVID-19 precaution, MDI, albuterol, O2 saturations to be kept above 90% with p.r.n. nasal cannula oxygen, azithromycin empirically. We will also add ceftriaxone for increased lactic acid. The patient to be followed closely for any acute increase in shortness of breath or desaturation. Job ID: [id number]
[2019-08-25] MEDS: Albuterol 200 PUFF (6.7GM INHALER) INH SCH ×10 (00:23→18:05)
[2019-08-25] MEDS: cefTRIAXone\\ROCEPHIN 1 GM in Sodium Chloride 0.9% 100 ML IVPB SCH (00:24)
[2019-08-25] MEDS: Benzonatate 100 MG CAP PO PRN ×3 (01:50→20:41)
[2019-08-25 05:45] LABS: Anion Gap 13 mmol/L (10-20); BUN (Urea Nitrogen) 8 mg/dL (7.0-18.7); Calc. Creatinine Clearance 130 mL/min (70-130); Calcium 8.6 mg/dL (7.8-10.44); Carbon Dioxide 20 mmol/L (22-29); Chloride 106 mmol/L (98-107); Estimated GFR-MDRD Greater than 90; Glucose 93 mg/dL (70-105); Potassium 3.7 mmol/L (3.5-5.1); Sodium 135 mmol/L (136-145)
[2019-08-25 05:58] LABS: Hemoglobin 12.2 g/dL (12.0-16.0); Lymphocytes 51 % (21-51); MDiff Complete? YES; Mean Corpuscular HGB CONC 33.8 g/dL (32.0-36.0); Mean Corpuscular Hemoglobin 30.9 pg (27.0-31.0); Mean Corpuscular Volume 91.5 fL (78.0-98.0); Mean Platelet Volume 6.1 fL (7.4-10.4); Monocytes 3 % (0-10); Neutrophil 44 % (42-75); Platelet Count 430 thou/uL (130-400); Platelet Morphology Comment Appears Increased; RBC Distribution Width 11.9 % (11.5-14.5); RBC Morphology Normal; Reactive Lymphocytes 2 % (0-10); Red Blood Cell (RBC) Count 3.96 mill/uL (4.20-5.40); White Blood Cell (WBC) Count 6.9 thou/uL (4.8-10.8)
[2019-08-25] MEDS: Enoxaparin Sodium 40 MG/0.4 ML SYRINGE SC SCH (12:06)
[2019-08-25] MEDS ORDERED: Sodium Chloride 0.9% 1,000 ML IV SCH (13:15)
[2019-08-25 14:11] LABS: Lactic Acid 1.4 mmol/L (0.5-2.2)
[2019-08-25] MEDS: Guaifenesin DM 100-10/5 ML UDCUP PO PRN ×2 (14:19→20:41)
--- NOTE | 2019-08-25 14:45 | PDOC.HOSPP ---
- Subjective Encounter Date: 08/25/19 Encounter Time: 14:36 - Objective Vital Signs & Weight: Vital Signs (12 hours) Temp Pulse Resp BP BP Pulse Ox 08/25/19 12:15 98.1 F 80 20 110/70 100 08/25/19 09:45 98.9 F 86 24 H 122/64 100 08/25/19 04:00 97.9 F 67 16 97/55 L 98 Weight Admit Weight 157 lb 12.8 oz Weight 157 lb 12.8 oz I&O: 08/24/19 08/25/19 08/26/19 06:59 06:59 06:59 Intake Total 240 Balance 240 Result Diagrams: 08/25/19 04:57 08/25/19 04:57 Hospitalist ROS - Review of Systems Constitutional: reports: other. denies: fever, chills, sweats, weakness, malaise Eyes: denies: pain, vision change, conjunctivae inflammation, eyelid inflammation, redness, other ENT: denies: ear pain, ear discharge, nose pain, nose discharge, nose congestion , mouth pain, mouth swelling, throat pain, throat swelling, other Respiratory: reports: cough, dry, SOB with excertion, pleuritic pain Cardiovascular: denies: chest pain, palpitations, orthopnea, paroxysmal noc. dyspnea, edema, light headedness, other Gastrointestinal: denies: nausea, vomiting, abdominal pain, diarrhea, constipation, melena, hematochezia, other Musculoskeletal: denies: neck pain, shoulder pain, arm pain, back pain, hand pain, leg pain, foot pain, other Skin: denies: rash, lesions, alexy, bruising, other Neurological: denies: weakness, numbness, incoordination, change in speech, confusion, seizures, other - Medication Medications: Active Medications Generic Name Dose Route Start Last Admin Trade Name Freq PRN Reason Stop Dose Admin Acetaminophen 650 mg 08/24/19 18:20 08/24/19 22:05 Tylenol PO 650 mg Q4H PRN Administration Headache/Fever/Mild Pain (1-3) Albuterol Sulfate 2 puff 08/24/19 20:00 08/25/19 12:06 Proventil Hfa INH 2 puff Q2HR LEORA Administration Benzonatate 100 mg 08/25/19 01:23 04/21/20 12:40 Tessalon PO 100 mg TIDPRN PRN Administration Cough Enoxaparin Sodium 40 mg 08/25/19 09:00 08/25/19 12:06 Lovenox SC Not Given 0900 [facility] Guaifenesin/Dextromethorphan 15 ml 08/24/19 18:20 08/24/19 22:05 Robitussin Dm PO 15 ml Q4H PRN Administration Cough Ceftriaxone Sodium 1 gm/ 100 mls @ 200 mls/hr 08/25/19 01:00 08/25/19 00:24 Sodium Chloride IVPB 100 mls Q24HR LEORA Administration Sodium Chloride 10 ml 08/24/19 21:00 08/25/19 12:06 Flush - Normal Saline IVF Not Given Q12HR LEORA - Exam Eye: PERRL, anicteric sclera ENT: normocephalic atraumatic, no oropharyngeal lesions, moist mucosa Neck: supple, symmetric, no JVD, no thyromegaly, no lymphadenopathy Heart: RRR, no murmur, no gallops, no rubs, normal peripheral pulses Respiratory: CTAB, no wheezes, no rales, no ronchi Gastrointestinal: soft, non-tender, non-distended, normal bowel sounds Extremities: no cyanosis, no clubbing, no edema Skin: normal turgor, no lesions Neurological: cranial nerve grossly intact, normal sensation to touch Musculoskeletal: normal tone, normal strength, no muscle wasting Psychiatric: normal affect, normal behavior, A&O x 3 Hosp A/P - Plan continue antibiotics, respiratory therapy, DVT proph w/lovenox Cough with tachycardia, O2 sats wnl Covid negative. Continued suspicion for Covid so continue with droplet and airborne isolation IV fluid resuscitation for elevated lactic acid level Continue IV abx.
[2019-08-25] MEDS ORDERED: Azithromycin 500 MG in Sodium Chloride 0.9% 250 ML 250 ML IVPB SCH (18:30)
[2019-08-25] MEDS: Acetaminophen 325 MG TAB PO PRN (20:41)
[2019-08-25] MEDS ORDERED: Nortriptyline 10 MG CAP PO SCH (21:00)
[2019-08-26] MEDS: cefTRIAXone\\ROCEPHIN 1 GM in Sodium Chloride 0.9% 100 ML IVPB SCH (02:06)
[2019-08-26] MEDS: Albuterol 200 PUFF (6.7GM INHALER) INH SCH ×5 (02:11→11:07)
[2019-08-26] MEDS: Benzonatate 100 MG CAP PO PRN (02:26)
[2019-08-26] MEDS: Guaifenesin DM 100-10/5 ML UDCUP PO PRN ×2 (02:26→09:08)
[2019-08-26] MEDS: Enoxaparin Sodium 40 MG/0.4 ML SYRINGE SC SCH (08:50)
[2019-08-26 12:22] VITALS: BP 106/56; TEMP 98.1
--- NOTE | 2019-08-28 08:48 | DIS ---
DATE OF ADMISSION: 08/24/2019 DATE OF DISCHARGE: 08/26/2019 ADMISSION DIAGNOSES: 1. Possible COVID-19 infection. 2. Lactic acidosis. 3. Cough. DISCHARGE DIAGNOSES: Cough, highly suspicious of COVID, but the test was negative. HISTORY OF PRESENT ILLNESS: This is a -[id number] female, who presented to the ER with complaints of significant cough and shortness of breath. On arrival, she was tachycardic with a pulse of 114, respiratory rate of 20, temperature of 98.1, O2 saturations was 95% on room air. The patient's lactic acid was mildly elevated. The patient did significantly well with IV fluids and she was admitted under COVID suspicion. She was kept in isolation with droplet and airborne precaution. The patient was empirically treated with azithromycin symptomatically with a cough, MDI breathing treatments. COVID test subsequently came negative, but she was continued to be kept in isolation due to high suspicion of COVID. Subsequently, the patient was discharged as she was feeling better and her heart rate normalized and lactic acidosis resolved. The patient was instructed to remain in isolation for the next 2 weeks and a work excuse also was given accordingly. DISCHARGE INSTRUCTIONS: 1. Continue to take azithromycin. 2. Drink plenty of fluids. 3. Remain in isolation for next 14 days. 4. Follow up with your primary care physician. Job ID: [id number]
--- NOTE | 2019-09-04 12:33 | EKG ---
Test Reason : Blood Pressure : / mmHG Vent. Rate : 093 BPM Atrial Rate : 093 BPM P-R Int : 146 ms QRS Dur : 078 ms QT Int : 330 ms P-R-T Axes : 080 084 056 degrees QTc Int : 410 ms Normal sinus rhythm Normal ECG Reconfirmed by JACOB MOROCHO, CHLOE ([id number]), managing editor DAXA BRADY ([id number] on 09/04/2019 12:32:50 PM Referred By: Confirmed By:CHLOE JAMES MD
== END 2019-08-26 12:22 | disposition home or self-care (01) ==
LOC: ERS 11:16 → 2SW 15:05 → INTOOBSV 15:05
PROVIDERS: ADMIT Family Medicine; ATTEND Family Medicine
DX: R05 Cough (principal); R50.9 Fever, unspecified; E87.2 Acidosis; R06.02 Shortness of breath; K31.84 Gastroparesis; G04.91 Myelitis, unspecified; Z20.828 Contact with and (suspected) exposure to other viral communicable diseases; Z79.899 Other long term (current) drug therapy; Z88.1 Allergy status to other antibiotic agents; Z88.5 Allergy status to narcotic agent; Z88.8 Allergy status to other drugs, medicaments and biological substances; Z91.040 Latex allergy status
CPT/HCPCS: 36415; 71045; 71275; 80048; 83605; 84484; 85025; 87040; 93005; 96361; 96365; 96366; 96367; 96368; 96372; 96376; G0378; J0171; J0456; J0696; J1650; J3105; J3475; J3490; J7050; Q9967

== ENCOUNTER 2020-06-27 05:40 | Emergency (ER) | payer BC ==
[2020-06-27] MEDS ORDERED: Ketorolac Tromethamine 30 MG/ML VIAL ONE (05:59)
[2020-06-27] MEDS ORDERED: Ondansetron ODT 8 MG TAB ONE (05:59)
[2020-06-27 06:20] LABS: Bacteria/HPF None Seen HPF (None Seen); Bilirubin Negative (Negative); Blood, Urine 2+ (Negative); Clarity Clear (Clear); Glucose, Urine (Dipstick) Normal (Negative); Ketone, Urine Negative (Negative); Leukocyte Negative Leu/uL (Negative); Nitrite Negative (Negative); Protein, Urine (Dipstick) Negative (Neg-Trace); Specific Gravity, Urine 1.025 (1.002-1.036); Squamous Epithelial 0-3 HPF (0-3); Urobilinogen Normal mg/dL (Less than 2); WBC/HPF 0-3 HPF (0-3)
[2020-06-27 06:22] LABS: Pregnancy Test - Urine (BHCG) Negative (Negative); Pregu Control Background? CLEAR/WHITE (CLR/WHITE); Pregu Control Bar Appear? YES (CONTROL BAR)
== END 2020-06-27 06:42 | disposition home or self-care (01) ==
LOC: ERS 05:40
DX: R11.2 Nausea with vomiting, unspecified (principal); M79.18 Myalgia, other site; T80.89XA Other complications following infusion, transfusion and therapeutic injection, initial encounter
CPT/HCPCS: 81003; 81015; 81025; 96372; 99284; J1885; Q0162

== ENCOUNTER 2021-04-12 19:20 | Inpatient (IN) | payer OTHER, BC ==
[2021-04-12] MEDS ORDERED: Lorazepam 2 MG/ML VIAL ONE ×2 (19:40→21:10)
[2021-04-12 19:43] LABS: #Basophils 0.1 thou/uL (0.0-0.2); #Eosinphils 0.1 thou/uL (0.0-0.7); #Lymphocytes 3.7 thou/uL (1.20-3.40); #Monocytes 0.8 thou/uL (0.11-0.59); #Neutrophils 5.4 thou/uL (1.40-6.50); %Basophils 0.5 % (0.0-1.0); %Eosinophils 0.9 % (0.0-10.0); %Lymphocytes 37.2 % (21.0-51.0); %Monocytes 7.8 % (0.0-10.0); %Neutrophils 53.7 % (42.0-75.0); Hemoglobin 12.9 g/dL (12.0-16.0); Mean Corpuscular Hemoglobin 31.8 pg (27.0-31.0); Mean Corpuscular Volume 93.6 fL (78.0-98.0); Mean Platelet Volume 5.6 fL (7.4-10.4); Platelet Count 567 thou/uL (130-400); RBC Distribution Width 12.4 % (11.5-14.5); Red Blood Cell (RBC) Count 4.06 mill/uL (4.20-5.40)
[2021-04-12] MEDS ORDERED: levETIRAcetam in NS 200 ML ONE (19:47)
[2021-04-12] MEDS ORDERED: Rocuronium Bromide 10 MG/ML (10ML VIAL) ONE (19:51)
[2021-04-12] MEDS ORDERED: PROPOFOL 20 ML ONE (19:51)
[2021-04-12] MEDS ORDERED: Propofol 1,000 MG/100 ML VIAL IV ONE ×2 (19:57→23:25)
[2021-04-12 20:04] LABS: Acetaminophen Less than 6.0 mcg/mL (10.0-30.0); Alcohol Less than 10 mg/dL (Less than 10); CK (CPK) 53 U/L (29-168); Magnesium 2.2 mg/dL (1.6-2.6); Salicylate Less than 8.0 mg/dL (15.0-30.0)
[2021-04-12 20:05] LABS: ALT (SGPT) 23 U/L (8-55); AST (SGOT) 24 U/L (5-34); Alkaline Phosphatase 58 U/L (40-110); Anion Gap 16 mmol/L (10-20); BUN (Urea Nitrogen) 13 mg/dL (7.0-18.7); Bilirubin, Total 0.4 mg/dL (0.2-1.2); Calc. Creatinine Clearance 0 mL/min (70-130); Calcium 9.7 mg/dL (7.8-10.44); Carbon Dioxide 21 mmol/L (22-29); Chloride 103 mmol/L (98-107); Globulin 3.5 g/dL (2.4-3.5); Glucose 96 mg/dL (70-105); Potassium 3.7 mmol/L (3.5-5.1); Protein, Total 7.5 g/dL (6.0-8.3); Sodium 136 mmol/L (136-145)
[2021-04-12 20:17] LABS: Actual Bicarbonate (HCO3a) 18.9 mEq/L (22-28); Analyzer IN Cardio ER; Base Excess (BEa) -3.4 mEq/L (-2.0 to +3.0); CO2 Tension 26.8 mmHg (35.0-45.0); Calcium, Ionized (arterial) 1.15 mmol/L (1.12-1.30); Carboxyhemoglobin (COHb) 0.3 gm% (0.0-3.0); O2 Tension (PaO2), arterial 134.9 mmHg (80.0-100.0); Potassium - ABG Lab 3.52 mmol/L (3.70-5.30); pH, Arterial 7.47 (7.35-7.45)
[2021-04-12 20:19] LABS: Puncture Site RRA
[2021-04-12 20:26] LABS: Bacteria/HPF None Seen HPF (None Seen); Bilirubin Negative (Negative); Blood, Urine Trace (Negative); Clarity Clear (Clear); Glucose, Urine (Dipstick) Normal (Negative); Ketone, Urine Negative (Negative); Leukocyte Negative Leu/uL (Negative); Nitrite Negative (Negative); Protein, Urine (Dipstick) Negative (Neg-Trace); RBC/HPF 0-3 HPF (0-3); Specific Gravity, Urine 1.009 (1.002-1.036); Squamous Epithelial 0-3 HPF (0-3); Urobilinogen Normal mg/dL (Less than 2); WBC/HPF 0-3 HPF (0-3)
[2021-04-12 20:34] LABS: Amphetamine Detected (NotDetected); Barbiturates Screen Not Detected (NotDetected); Benzodiazepine Screen Not Detected (NotDetected); Cocaine Metabolite Screen Not Detected (NotDetected); Methadone Not Detected (NotDetected); Methamphetamine Not Detected (NotDetected); Opiate Screen Detected (NotDetected); Oxycodone Screen Not Detected (NotDetected); Phencyclidine (PCP) Not Detected (NotDetected); THC/Cannabinoid Screen Not Detected (NotDetected); Tricyclic Screen Not Detected (NotDetected)
[2021-04-12] MEDS ORDERED: Fentanyl 100 MCG/2 ML VIAL ONE (21:14)
[2021-04-12 21:24] LABS: SARS-CoV-2 NAA Rapid Test Not Detected (NotDetected)
[2021-04-12] MEDS ORDERED: Fentanyl CADD 100 ML IV SCH (21:30)
[2021-04-12] MEDS ORDERED: Acetaminophen 650 MG Suppository PR PRN (23:02)
[2021-04-12] MEDS ORDERED: Ondansetron PF 4 MG/2 ML Vial IVP PRN (23:02)
[2021-04-12] MEDS ORDERED: Ondansetron ODT 4 MG TAB PO PRN (23:02)
[2021-04-12] MEDS ORDERED: Acetaminophen 325 MG TAB PO PRN (23:02)
[2021-04-12] MEDS ORDERED: Propofol 1,000 MG/100 ML VIAL IV PRN (23:15)
[2021-04-12] MEDS ORDERED: Propofol BOLUS 1,000 MG/100 ML VIAL IV PRN (23:15)
[2021-04-12] MEDS ORDERED: Fentanyl BOLUS 250 ML IVPB PRN (23:15)
[2021-04-12] MEDS ORDERED: Ventilator Sedation Protocol 1 EACH FS SCH (23:15)
[2021-04-12] MEDS ORDERED: DISCONTINUE PREVIOUS NARCOTIC PAIN MEDICATIONS AND BENZODIAZEPINES FS SCH (23:15)
[2021-04-12] MEDS ORDERED: Lorazepam 2 MG/ML VIAL SLOW IVP PRN (23:15)
[2021-04-12] MEDS ORDERED: Morphine 2 MG/ML VIAL SLOW IVP PRN (23:15)
[2021-04-12 23:24] LABS: Lactic Acid 2.3 mmol/L (0.5-2.2)
[2021-04-13] MEDS: Hydrocortisone Sod Succ/PF 100 mg/2 ml Vial IVP SCH ×4 (00:05→17:15)
[2021-04-13 00:52] VITALS: BMI 28.4
[2021-04-13 04:02] LABS: Hemoglobin 12.2 g/dL (12.0-16.0); Mean Corpuscular HGB CONC 33.2 g/dL (32.0-36.0); Mean Corpuscular Hemoglobin 31.1 pg (27.0-31.0); Mean Corpuscular Volume 93.7 fL (78.0-98.0); Mean Platelet Volume 5.7 fL (7.4-10.4); Platelet Count 473 thou/uL (130-400); RBC Distribution Width 12.6 % (11.5-14.5); Red Blood Cell (RBC) Count 3.94 mill/uL (4.20-5.40); White Blood Cell (WBC) Count 14.7 thou/uL (4.8-10.8)
[2021-04-13 04:06] LABS: Anion Gap 12 mmol/L (10-20); BUN (Urea Nitrogen) 10 mg/dL (7.0-18.7); Calc. Creatinine Clearance 147 mL/min (70-130); Calcium 8.7 mg/dL (7.8-10.44); Carbon Dioxide 20 mmol/L (22-29); Chloride 106 mmol/L (98-107); Glucose 90 mg/dL (70-105); Sodium 134 mmol/L (136-145)
[2021-04-13 04:56] LABS: Band 1 % (5-11); Eosinophils 1 % (0-10); Lymphocytes 35 % (21-51); MDiff Complete? YES; Monocytes 7 % (0-10); Neutrophil 56 % (42-75); Platelet Morphology Comment Appears Increased; Small Platelets SLIGHT
[2021-04-13] MEDS: Enoxaparin Sodium 30 MG/0.3 ML SYRINGE SC SCH (08:18)
[2021-04-13] MEDS ORDERED: levETIRAcetam in NS 500 MG in Premix Bag 1 BAG IVPB SCH ×2 (09:00→17:00)
[2021-04-13] MEDS ORDERED: Midodrine HCl 5 MG TAB PO SCH (21:30)
[2021-04-13] MEDS: levETIRAcetam in NS 1,000 MG in Premix Bag 1 BAG IVPB SCH (21:43)
[2021-04-14] MEDS: Hydrocortisone Sod Succ/PF 100 mg/2 ml Vial IVP SCH ×4 (01:41→21:56)
[2021-04-14 07:38] LABS: #Basophils 0.1 thou/uL (0.0-0.2); #Lymphocytes 1.5 thou/uL (1.20-3.40); #Monocytes 0.4 thou/uL (0.11-0.59); #Neutrophils 7.2 thou/uL (1.40-6.50); %Basophils 0.8 % (0.0-1.0); %Eosinophils 0.2 % (0.0-10.0); %Lymphocytes 16.5 % (21.0-51.0); %Monocytes 4.7 % (0.0-10.0); %Neutrophils 77.8 % (42.0-75.0); Hemoglobin 12.3 g/dL (12.0-16.0); Mean Corpuscular HGB CONC 33.8 g/dL (32.0-36.0); Mean Corpuscular Hemoglobin 31.1 pg (27.0-31.0); Mean Corpuscular Volume 92.1 fL (78.0-98.0); Mean Platelet Volume 5.5 fL (7.4-10.4); Platelet Count 518 thou/uL (130-400); RBC Distribution Width 12.4 % (11.5-14.5); Red Blood Cell (RBC) Count 3.95 mill/uL (4.20-5.40); White Blood Cell (WBC) Count 9.2 thou/uL (4.8-10.8)
[2021-04-14 08:04] LABS: Anion Gap 12 mmol/L (10-20); BUN (Urea Nitrogen) 9 mg/dL (7.0-18.7); Calc. Creatinine Clearance 132 mL/min (70-130); Calcium 8.7 mg/dL (7.8-10.44); Carbon Dioxide 23 mmol/L (22-29); Chloride 105 mmol/L (98-107); Glucose 104 mg/dL (70-105); Potassium 3.5 mmol/L (3.5-5.1); Sodium 136 mmol/L (136-145)
[2021-04-14] MEDS: Enoxaparin Sodium 30 MG/0.3 ML SYRINGE SC SCH (09:05)
[2021-04-14] MEDS: Midodrine HCl 5 MG TAB PO SCH ×2 (09:06→17:37)
[2021-04-14] MEDS: levETIRAcetam in NS 1,000 MG in Premix Bag 1 BAG IVPB SCH ×2 (09:06→22:36)
[2021-04-14] MEDS: Lorazepam 2 MG/ML VIAL SLOW IVP PRN ×2 (14:14→19:59)
[2021-04-14] MEDS ORDERED: Lorazepam 2 MG/ML VIAL SLOW IVP PRN (20:06)
[2021-04-14 20:29] LABS: #Monocytes 0.7 thou/uL (0.11-0.59); #Neutrophils 6.6 thou/uL (1.40-6.50); %Basophils 0.2 % (0.0-1.0); %Eosinophils 0.3 % (0.0-10.0); %Lymphocytes 29.2 % (21.0-51.0); %Monocytes 6.4 % (0.0-10.0); %Neutrophils 63.9 % (42.0-75.0); Hemoglobin 12.3 g/dL (12.0-16.0); Mean Corpuscular HGB CONC 33.4 g/dL (32.0-36.0); Mean Corpuscular Hemoglobin 30.5 pg (27.0-31.0); Mean Corpuscular Volume 91.4 fL (78.0-98.0); Mean Platelet Volume 5.5 fL (7.4-10.4); Platelet Count 557 thou/uL (130-400); RBC Distribution Width 12.3 % (11.5-14.5); Red Blood Cell (RBC) Count 4.03 mill/uL (4.20-5.40); White Blood Cell (WBC) Count 10.3 thou/uL (4.8-10.8)
[2021-04-14 20:40] LABS: INR-International Normal Ratio 0.9; PTT 23.5 sec (22.9-36.1); Prothrombin Time 12.7 sec (12.0-14.7)
[2021-04-14 20:49] LABS: Anion Gap 10 mmol/L (10-20); BUN (Urea Nitrogen) 11 mg/dL (7.0-18.7); Calc. Creatinine Clearance 122 mL/min (70-130); Calcium 8.9 mg/dL (7.8-10.44); Carbon Dioxide 25 mmol/L (22-29); Chloride 105 mmol/L (98-107); Glucose 107 mg/dL (70-105); Potassium 3.4 mmol/L (3.5-5.1); Sodium 137 mmol/L (136-145)
[2021-04-14] MEDS ORDERED: levETIRAcetam in NS 1,000 MG in Premix Bag 1 BAG IVPB SCH (21:45)
[2021-04-15 04:45] LABS: #Eosinphils 0.1 thou/uL (0.0-0.7); #Lymphocytes 2.7 thou/uL (1.20-3.40); #Monocytes 0.6 thou/uL (0.11-0.59); #Neutrophils 5.4 thou/uL (1.40-6.50); %Basophils 0.4 % (0.0-1.0); %Eosinophils 0.6 % (0.0-10.0); %Lymphocytes 30.9 % (21.0-51.0); %Monocytes 6.5 % (0.0-10.0); %Neutrophils 61.6 % (42.0-75.0); Hemoglobin 11.9 g/dL (12.0-16.0); Mean Corpuscular HGB CONC 34.1 g/dL (32.0-36.0); Mean Corpuscular Hemoglobin 31.3 pg (27.0-31.0); Mean Platelet Volume 5.8 fL (7.4-10.4); Platelet Count 505 thou/uL (130-400); RBC Distribution Width 12.3 % (11.5-14.5); Red Blood Cell (RBC) Count 3.79 mill/uL (4.20-5.40); White Blood Cell (WBC) Count 8.8 thou/uL (4.8-10.8)
[2021-04-15 05:05] LABS: Anion Gap 12 mmol/L (10-20); BUN (Urea Nitrogen) 9 mg/dL (7.0-18.7); Calc. Creatinine Clearance 138 mL/min (70-130); Calcium 8.7 mg/dL (7.8-10.44); Carbon Dioxide 22 mmol/L (22-29); Chloride 107 mmol/L (98-107); Glucose 103 mg/dL (70-105); Potassium 3.4 mmol/L (3.5-5.1); Sodium 138 mmol/L (136-145)
[2021-04-15] MEDS: Hydrocortisone Sod Succ/PF 100 mg/2 ml Vial IVP SCH ×3 (06:05→23:44)
[2021-04-15] MEDS ORDERED: Electrolyte Replacement Protocol FS PRN (06:15)
[2021-04-15] MEDS ORDERED: Potassium Chloride 40 MEQ in Sodium Chloride 0.9% 250 ML 250 ML IVPB SCH (06:30)
[2021-04-15] MEDS: Midodrine HCl 5 MG TAB PO SCH ×2 (08:35→13:48)
[2021-04-15] MEDS: Enoxaparin Sodium 30 MG/0.3 ML SYRINGE SC SCH (08:35)
[2021-04-15] MEDS: levETIRAcetam in NS 1,000 MG in Premix Bag 1 BAG IVPB SCH (08:51)
[2021-04-15] MEDS ORDERED: levETIRAcetam in NS 1,500 MG in Premix Bag 1 BAG IVPB SCH (09:00)
[2021-04-15] MEDS ORDERED: diphenhydrAMINE 50 MG/ML VIAL ONE (13:13)
[2021-04-15] MEDS ORDERED: diphenhydrAMINE 50 MG/ML VIAL IVP SCH (13:15)
[2021-04-15] MEDS: Nortriptyline 10 MG CAP PO SCH (20:58)
[2021-04-15] MEDS ORDERED: Non-Formulary Item 1 EACH (Buprenorphine Hcl [Belbuca] 300 MCG Film) TOP SCH (21:00)
[2021-04-16] MEDS: diphenhydrAMINE 50 MG/ML VIAL IVP PRN ×3 (00:16→22:05)
[2021-04-16] MEDS: Lorazepam 2 MG/ML VIAL SLOW IVP PRN (03:48)
[2021-04-16] MEDS: Hydrocortisone Sod Succ/PF 100 mg/2 ml Vial IVP SCH ×3 (06:04→20:34)
[2021-04-16 07:06] LABS: Anion Gap 12 mmol/L (10-20); BUN (Urea Nitrogen) 7 mg/dL (7.0-18.7); Calc. Creatinine Clearance 147 mL/min (70-130); Calcium 8.9 mg/dL (7.8-10.44); Carbon Dioxide 21 mmol/L (22-29); Chloride 106 mmol/L (98-107); Glucose 105 mg/dL (70-105); Potassium 3.5 mmol/L (3.5-5.1); Sodium 135 mmol/L (136-145)
[2021-04-16] MEDS ORDERED: METHYLNALTREXONE BROMIDE 150 MG PO SCH (09:00)
[2021-04-16] MEDS: Enoxaparin Sodium 30 MG/0.3 ML SYRINGE SC SCH (10:22)
[2021-04-16] MEDS: Oxybutynin 5 MG TAB PO SCH (10:22)
[2021-04-16] MEDS: Midodrine HCl 5 MG TAB PO SCH ×2 (10:50→15:27)
[2021-04-16] MEDS: Nortriptyline 10 MG CAP PO SCH (20:33)
[2021-04-17] MEDS: Lorazepam 2 MG/ML VIAL SLOW IVP PRN (02:56)
[2021-04-17] MEDS: Hydrocortisone Sod Succ/PF 100 mg/2 ml Vial IVP SCH (05:59)
[2021-04-17] MEDS: Oxybutynin 5 MG TAB PO SCH ×2 (08:28→08:32)
[2021-04-17] MEDS: Midodrine HCl 5 MG TAB PO SCH (08:29)
[2021-04-17] MEDS ORDERED: Enoxaparin Sodium 40 MG/0.4 ML SYRINGE SC SCH (09:00)
[2021-04-17 12:06] VITALS: BP 109/82; TEMP 98.2
== END 2021-04-17 12:10 | disposition home or self-care (01) | DRG 100 ==
LOC: ERS 19:20 → CCU 23:02 → NEURO 04-14 12:12 → CCU 04-14 20:09 → NEURO 04-16 13:47
PROVIDERS: ADMIT Student in an Organized Health Care Education/Training Program; ATTEND Hospitalist
PROC: 0BH17EZ Insertion of Endotracheal Airway into Trachea, Via Natural or Artificial Opening (ICD-10-PCS; principal; 2021-04-12)
PROC: 5A1935Z Respiratory Ventilation, Less than 24 Consecutive Hours (ICD-10-PCS; 2021-04-12)
PROC: 0D9670Z Drainage of Stomach with Drainage Device, Via Natural or Artificial Opening (ICD-10-PCS; 2021-04-12)
DX: R56.9 Unspecified convulsions (principal); J96.01 Acute respiratory failure with hypoxia; G93.41 Metabolic encephalopathy; E27.1 Primary adrenocortical insufficiency; Z20.822 Contact with and (suspected) exposure to COVID-19; I10 Essential (primary) hypertension; E03.9 Hypothyroidism, unspecified; K31.84 Gastroparesis; G93.89 Other specified disorders of brain; T38.0X6A Underdosing of glucocorticoids and synthetic analogues, initial encounter; L27.1 Localized skin eruption due to drugs and medicaments taken internally; T42.6X5A Adverse effect of other antiepileptic and sedative-hypnotic drugs, initial encounter; Z88.1 Allergy status to other antibiotic agents; Z88.5 Allergy status to narcotic agent; Z88.8 Allergy status to other drugs, medicaments and biological substances; Z79.899 Other long term (current) drug therapy; Z79.51 Long term (current) use of inhaled steroids; Z86.73 Personal history of transient ischemic attack (TIA), and cerebral infarction without residual deficits; Z98.890 Other specified postprocedural states; Z91.040 Latex allergy status; Z78.1 Physical restraint status; Z87.898 Personal history of other specified conditions; Z91.128 Patient's intentional underdosing of medication regimen for other reason; Y92.239 Unspecified place in hospital as the place of occurrence of the external cause
CPT/HCPCS: 31500; 36415; 36416; 36600; 51702; 70450; 70551; 71045; 72125; 80048; 80053; 80177; 80306; 80307; 81003; 81015; 82533; 82550; 82805; 83605; 83735; 84443; 84484; 85025; 85610; 85730; 93005; 94002; 94003; 95712; 95816; 95819; 95957; 96365; 96366; 96368; 96375; 96376; 99292; J1200; J1650; J1720; J1953; J2060; J2405; J2704; J3010; J3480; J3490; J7050; U0002

== ENCOUNTER 2021-06-22 08:41 | Outpatient (CLI) | payer BC | END 2021-06-22 08:42 | disposition home or self-care (01) | LOC: MRI 08:41 | PROVIDERS: ATTEND Anesthesiology Pain Medicine | DX: M47.22 Other spondylosis with radiculopathy, cervical region (principal); Z98.890 Other specified postprocedural states | CPT/HCPCS: 72141 ==

== ENCOUNTER 2021-10-14 22:01 | Emergency (ER) | payer BC ==
[2021-10-14] MEDS ORDERED: Boostrix 0.5 ML (Tdap) VIAL ONE (22:44)
[2021-10-14] MEDS ORDERED: HYDROcodone/Acetaminophen 10/325 mg Tablet ONE (22:44)
[2021-10-14] MEDS ORDERED: Lidocaine 1% PF 5 ML VIAL ONE (22:44)
== END 2021-10-14 23:13 | disposition home or self-care (01) ==
LOC: ERS 22:01
DX: S90.852A Superficial foreign body, left foot, initial encounter (principal); W45.8XXA Other foreign body or object entering through skin, initial encounter; Z23 Encounter for immunization
CPT/HCPCS: 28190; 90471; 90715

== ENCOUNTER 2022-06-16 07:50 | Emergency (ER) | payer BC ==
[2022-06-16] MEDS ORDERED: Ondansetron PF 4 MG/2 ML Vial ONE (08:22)
[2022-06-16] MEDS ORDERED: Ketorolac Tromethamine 30 MG/ML VIAL ONE (08:22)
[2022-06-16 08:46] LABS: #Basophils 0.1 thou/uL (0.0-0.2); #Eosinphils 0.1 thou/uL (0.0-0.7); #Lymphocytes 2.5 thou/uL (1.20-3.40); #Monocytes 0.4 thou/uL (0.11-0.59); %Basophils 1.5 % (0.0-1.0); %Eosinophils 2.2 % (0.0-10.0); %Lymphocytes 49.5 % (21.0-51.0); %Monocytes 7.5 % (0.0-10.0); %Neutrophils 39.3 % (42.0-75.0); Hemoglobin 12.8 g/dL (12.0-16.0); Mean Corpuscular HGB CONC 34.1 g/dL (32.0-36.0); Mean Corpuscular Hemoglobin 31.2 pg (27.0-31.0); Mean Corpuscular Volume 91.5 fl (78.0-98.0); Platelet Count 461 10x3/uL (130-400); RBC Distribution Width 12.7 % (11.5-14.5); Red Blood Cell (RBC) Count 4.11 mill/uL (4.20-5.40)
[2022-06-16 08:52] LABS: BHCG - Serum Negative (NEGATIVE); Pregs Control Background? CLEAR/WHITE (CLR/WHITE); Pregs Control Bar Appear? YES (CONTROL BAR)
[2022-06-16 09:04] LABS: ALT (SGPT) 18 U/L (8-55); AST (SGOT) 20 U/L (5-34); Alkaline Phosphatase 58 U/L (40-110); Anion Gap 13 mmol/L (10-20); BUN (Urea Nitrogen) 16 mg/dL (7.0-18.7); Bilirubin, Total 0.4 mg/dL (0.2-1.2); Calc. Creatinine Clearance 0 mL/min (70-130); Calcium 9.1 mg/dL (7.8-10.44); Carbon Dioxide 19 mmol/L (22-29); Chloride 107 mmol/L (98-107); Estimated GFR 102; Globulin 3.3 g/dL (2.4-3.5); Glucose 86 mg/dL (70-105); Potassium 3.6 mmol/L (3.5-5.1); Protein, Total 7.3 g/dL (6.0-8.3); Sodium 135 mmol/L (136-145)
[2022-06-16 09:05] LABS: Bacteria/HPF 2+ HPF (None Seen); Bilirubin Negative (Negative); Blood, Urine 1+ (Negative); Clarity Clear (Clear); Glucose, Urine (Dipstick) Normal (Negative); Ketone, Urine Negative (Negative); Leukocyte 250 Leu/uL (Negative); Nitrite Negative (Negative); Protein, Urine (Dipstick) Negative (Neg-Trace); Specific Gravity, Urine 1.012 (1.002-1.036); Squamous Epithelial 0-3 HPF (0-3); Urobilinogen Normal mg/dL (Less than 2); WBC/HPF 21-50 HPF (0-3); pH, Urine 5.5 (5.0-9.0)
[2022-06-16] MEDS ORDERED: Morphine 2 MG/ML VIAL ONE (09:47)
[2022-06-16] MEDS ORDERED: Morphine 4 MG/ML VIAL ONE (09:47)
== END 2022-06-16 10:16 | disposition home or self-care (01) ==
LOC: ERS 07:50
DX: N10 Acute pyelonephritis (principal)
CPT/HCPCS: 36415; 74176; 80053; 81003; 81015; 84703; 85025; 87077; 87086; 87186; 96361; 96374; 96375; J1885; J2270; J2272; J2405

== ENCOUNTER 2022-06-19 08:31 | Emergency (ER) | payer BC ==
[2022-06-19] MEDS ORDERED: Morphine 4 MG/ML VIAL ONE (09:09)
[2022-06-19] MEDS ORDERED: Ondansetron PF 4 MG/2 ML Vial ONE (09:09)
[2022-06-19 09:24] LABS: #Basophils 0.1 thou/uL (0.0-0.2); #Eosinphils 0.1 thou/uL (0.0-0.7); #Lymphocytes 3.4 thou/uL (1.20-3.40); #Monocytes 0.5 thou/uL (0.11-0.59); #Neutrophils 2.7 thou/uL (1.40-6.50); %Basophils 1.7 % (0.0-1.0); %Eosinophils 1.3 % (0.0-10.0); %Lymphocytes 49.8 % (21.0-51.0); %Monocytes 7.4 % (0.0-10.0); %Neutrophils 39.8 % (42.0-75.0); Hemoglobin 13.1 g/dL (12.0-16.0); Mean Corpuscular HGB CONC 33.6 g/dL (32.0-36.0); Mean Corpuscular Hemoglobin 30.4 pg (27.0-31.0); Mean Corpuscular Volume 90.3 fl (78.0-98.0); Platelet Count 545 10x3/uL (130-400); RBC Distribution Width 12.9 % (11.5-14.5); Red Blood Cell (RBC) Count 4.31 mill/uL (4.20-5.40); White Blood Cell (WBC) Count 6.7 10x3/uL (4.8-10.8)
[2022-06-19 09:30] LABS: BHCG - Serum Negative (NEGATIVE); Pregs Control Background? CLEAR/WHITE (CLR/WHITE); Pregs Control Bar Appear? YES (CONTROL BAR)
[2022-06-19] MEDS ORDERED: Iopamidol-370 76% 500 ML 1 ML ONE (09:38)
[2022-06-19 09:48] LABS: ALT (SGPT) 16 U/L (8-55); AST (SGOT) 19 U/L (5-34); Albumin 4.4 g/dL (3.5-5.0); Alkaline Phosphatase 60 U/L (40-110); Anion Gap 14 mmol/L (10-20); BUN (Urea Nitrogen) 12 mg/dL (7.0-18.7); Bilirubin, Total 0.7 mg/dL (0.2-1.2); Calc. Creatinine Clearance 0 mL/min (70-130); Calcium 9.4 mg/dL (7.8-10.44); Carbon Dioxide 19 mmol/L (22-29); Chloride 106 mmol/L (98-107); Estimated GFR 97; Globulin 3.4 g/dL (2.4-3.5); Glucose 101 mg/dL (70-105); Lipase 19 U/L (8-78); Potassium 3.8 mmol/L (3.5-5.1); Protein, Total 7.8 g/dL (6.0-8.3); Sodium 135 mmol/L (136-145)
[2022-06-19 11:49] LABS: Bilirubin Negative (Negative); Blood, Urine Negative (Negative); Clarity Clear (Clear); Glucose, Urine (Dipstick) Normal (Negative); Ketone, Urine Negative (Negative); Leukocyte Negative Leu/uL (Negative); Nitrite Negative (Negative); Protein, Urine (Dipstick) Negative (Neg-Trace); Specific Gravity, Urine 1.022 (1.002-1.036); Urobilinogen Normal mg/dL (Less than 2)
== END 2022-06-19 12:06 | disposition home or self-care (01) ==
LOC: ERS 08:31
DX: R10.31 Right lower quadrant pain (principal)
CPT/HCPCS: 74177; 80053; 81003; 83690; 84703; 85025; 96374; 96375; J2270; J2405; Q9967

== ENCOUNTER 2024-02-20 13:41 | Outpatient (CLI) | payer BC | END 2024-02-20 13:42 | disposition home or self-care (01) | LOC: CT 13:41 | PROVIDERS: ATTEND Surgery | DX: R10.32 Left lower quadrant pain (principal); N83.292 Other ovarian cyst, left side; M46.1 Sacroiliitis, not elsewhere classified | CPT/HCPCS: 74177 ==

== ENCOUNTER 2024-04-23 13:58 | Outpatient (CLI) | payer BC | END 2024-04-23 13:59 | disposition home or self-care (01) | LOC: MRI 13:58 | DX: M54.41 Lumbago with sciatica, right side (principal); M54.42 Lumbago with sciatica, left side; M48.061 Spinal stenosis, lumbar region without neurogenic claudication | CPT/HCPCS: 72148 ==

== ENCOUNTER 2024-12-17 15:06 | Outpatient (CLI) | payer OTHER | END 2024-12-17 15:07 | disposition home or self-care (01) | LOC: ULT 15:06 | PROVIDERS: ATTEND Nurse Practitioner Family | DX: R22.33 Localized swelling, mass and lump, upper limb, bilateral (principal) | CPT/HCPCS: 76999 ==